=== PATIENT | female | born 1940 | race Caucasian/White ===

== ENCOUNTER 2017-03-19 15:55 | Emergency (ER) | payer OTHER ==
[~2017-03-19] VITALS: Ht 149.9 cm; Wt 54.1 kg
[~2017-03-19 15:55] MED LIST: CHOLESTEROL PO; IRON18 MG PO; VITAMIN E100 UNIT PO
[2017-03-19] MEDS ORDERED: SIMVASTATIN40 MG PO (16:09)
[2017-03-19] MEDS ORDERED: ERY-TAB500 MG PO (16:10)
[2017-03-19] MEDS ORDERED: NEOMYCIN SULFA500 MG PO (16:10)
[2017-03-19 16:29] LABS: HEMATOCRIT 40.2 % (36.0-46.0); MCH 24.4 PG (29.0-34.0); MCHC 29.9 G/DL (30.0-36.0); MCV 81.7 FL (83-99); MEAN PLAT.VOLUME 9.4 uM^3 (9.5-12.4); RED BLOOD COUNT 4.92 M/uL (3.80-5.20); WHITE BLOOD COUNT 10.6 K/uL (4.1-10.2)
[2017-03-19 16:31] LABS: PLATELET COUNT 236 K/uL (156-360)
[2017-03-19 16:38] LABS: CHLORIDE 103 mEq/L (99-109); POTASSIUM 4.2 mEq/L (3.7-5.4); SODIUM 138 mEq/L (136-147)
[2017-03-19 16:40] LABS: GLUCOSE 147 mg/dL (70-99)
[2017-03-19 16:41] LABS: ANION GAP 15 MEQ/L (2-14)
[2017-03-19 16:42] LABS: TOTAL BILIRUBIN 0.9 mg/dL (0.0-1.0)
[2017-03-19 16:43] LABS: ALKALINE PHOSPHATASE 86 IU/L (3-129)
[2017-03-19 16:44] LABS: GFR ESTIMATE (CALCULATED) > 59 mL/min/
[2017-03-19 16:45] LABS: UREA NITROGEN (BUN) 7 mg/dL (9-23)
[2017-03-19 16:47] LABS: LIPASE 9 U/L (1.0-51.0)
[2017-03-19 20:21] LABS: ADD MIUA? YES; BILIRUBIN NEGATIVE; BLOOD NEGATIVE; COLOR AMBER ((YELLOW)); GLUCOSE (STRIP) 50; KETONES 20; LEUKOCYTES NEGATIVE; NITRITE POSITIVE; PROTEIN (STRIP) 30; UROBILINOGEN 0.2 MG/DL (0.2-1.0)
[2017-03-19 20:26] LABS: BACTERIA NONE SEEN /HPF; EPITHELIAL CELLS RARE /HPF; MUCUS TRACE /LPF; RED BLOOD CELLS 0-5 /HPF (0-5); WHITE BLOOD CELLS 0-5 /HPF (0-5)
[2017-03-19] MEDS ORDERED: NORCO 5/3251 TABLET PO (20:28)
[2017-03-19] MEDS ORDERED: ZOFRAN ODT8 MG PO (20:28)
[2017-03-19] MEDS ORDERED: CIPRO500 MG PO (20:28)
[2017-03-19 21:18] VITALS: BP 168/96
== END 2017-03-19 21:19 | disposition home or self-care (01) ==
LOC: EME 15:55
PROVIDERS: Nurse Practitioner Family; Physician Assistant
DX: N13.2 Hydronephrosis with renal and ureteral calculous obstruction (principal); R11.2 Nausea with vomiting, unspecified; N12 Tubulo-interstitial nephritis, not specified as acute or chronic; Z87.442 Personal history of urinary calculi
CPT/HCPCS: 74177; 80048; 80053; 81003; 83605; 83690; 85027; 99281; 99285; J0696; J2270; J2405; J3010; J7030; J7050

== ENCOUNTER 2017-03-29 21:20 | Inpatient (IN) | payer OTHER ==
[~2017-03-29] VITALS: Ht 149.9 cm; Wt 52.2 kg
[~2017-03-29 21:20] MED LIST changes: +CIPRO500 MG PO; +ERY-TAB500 MG PO; +NEOMYCIN SULFA500 MG PO; +NORCO 5/3251 TABLET PO; +SIMVASTATIN40 MG PO; +ZOFRAN ODT8 MG PO
[2017-03-30] MEDS ORDERED: VITAMIN E400 UNIT PO (08:22)
[2017-03-30 08:43] VITALS: BP 165/76
[2017-03-30 22:26] VITALS: BP 135/84
[2017-03-31] VITALS (7 sets, daily range): BP systolic 130–182; BP diastolic 62–82
[2017-03-31 06:23] LABS: HEMATOCRIT 37.1 % (36.0-46.0); MCH 25.6 PG (29.0-34.0); MCHC 30.7 G/DL (30.0-36.0); MCV 83.2 FL (83-99); MEAN PLAT.VOLUME 9.5 uM^3 (9.5-12.4); PLATELET COUNT 316 K/uL (156-360); RBC DIS.WIDTH-CV 26.5 % (11.8-14.6); RED BLOOD COUNT 4.46 M/uL (3.80-5.20); WHITE BLOOD COUNT 13.3 K/uL (4.1-10.2)
[2017-03-31 06:47] LABS: ANION GAP 9 MEQ/L (2-14); CHLORIDE 105 MEQ/L (99-109); GFR ESTIMATE (CALCULATED) > 59 mL/min/; SAMPLE HEMOLYSIS CHECK 0; SAMPLE ICTERIC CHECK 0; SAMPLE LIPEMIA CHECK 0; SODIUM 139 MEQ/L (136-147); UREA NITROGEN (BUN) 4 mg/dL (9-23)
[2017-03-31 06:54] LABS: GLUCOSE 201 mg/dL (70-99); POTASSIUM 4.1 MEQ/L (3.7-5.4)
[2017-04-01] VITALS (8 sets, daily range): BP systolic 142–188; BP diastolic 71–90
[2017-04-01 05:50] LABS: HEMATOCRIT 35.3 % (36.0-46.0); MCH 26.4 PG (29.0-34.0); MCHC 31.4 G/DL (30.0-36.0); MEAN PLAT.VOLUME 9.5 uM^3 (9.5-12.4); PLATELET COUNT 315 K/uL (156-360); RBC DIS.WIDTH-CV 27.3 % (11.8-14.6); RBC DIS.WIDTH-SD 78.1 % (39-53); WHITE BLOOD COUNT 21.5 K/uL (4.1-10.2)
[2017-04-01 05:52] LABS: EOSINOPHIL (%) 0 % (0-5); IMMATURE GRANULOCYTE (%) 0.5 % (0.0-0.7); IMMATURE GRANULOCYTE COUNT 0.1 K/uL; INSTRUMENT ABS NEUTROPHIL CT 18.6 K/uL; MONOCYTE (%) 8.5 % (3-12); MONOCYTE COUNT 1.8 K/uL (0-0.8); NEUTROPHIL (%) 86.4 % (45-76); NEUTROPHIL COUNT 18.6 K/uL (1.8-6.4)
[2017-04-01 06:14] LABS: ANION GAP 9 MEQ/L (2-14); CHLORIDE 103 MEQ/L (99-109); GFR ESTIMATE (CALCULATED) > 59 mL/min/; GLUCOSE 121 mg/dL (70-99); POTASSIUM 4.1 MEQ/L (3.7-5.4); SAMPLE HEMOLYSIS CHECK 0; SAMPLE ICTERIC CHECK 0; SAMPLE LIPEMIA CHECK 0; SODIUM 141 MEQ/L (136-147); UREA NITROGEN (BUN) 5 mg/dL (9-23)
[2017-04-02 02:31] VITALS: BP 185/89
[2017-04-02 07:27] VITALS: BP 148/72
[2017-04-02 09:32] LABS: EOSINOPHIL (%) 0.1 % (0-5); HEMATOCRIT 36.7 % (36.0-46.0); IMMATURE GRANULOCYTE (%) 0.4 % (0.0-0.7); IMMATURE GRANULOCYTE COUNT 0.1 K/uL; LYMPHOCYTE COUNT 1.2 K/uL (1.0-2.8); MCH 25.5 PG (29.0-34.0); MCHC 30.5 G/DL (30.0-36.0); MCV 83.4 FL (83-99); MEAN PLAT.VOLUME 9.9 uM^3 (9.5-12.4); MONOCYTE (%) 12.6 % (3-12); MONOCYTE COUNT 1.8 K/uL (0-0.8); NEUTROPHIL (%) 78.4 % (45-76); PLATELET COUNT 348 K/uL (156-360); RBC DIS.WIDTH-CV 26.8 % (11.8-14.6); WHITE BLOOD COUNT 14.1 K/uL (4.1-10.2)
[2017-04-02 09:52] LABS: ANION GAP 9 MEQ/L (2-14); CHLORIDE 103 MEQ/L (99-109); GFR ESTIMATE (CALCULATED) > 59 mL/min/; GLUCOSE 113 mg/dL (70-99); POTASSIUM 4.2 MEQ/L (3.7-5.4); SAMPLE HEMOLYSIS CHECK 0; SAMPLE ICTERIC CHECK 0; SAMPLE LIPEMIA CHECK 0; SODIUM 139 MEQ/L (136-147); UREA NITROGEN (BUN) 5 mg/dL (9-23)
[2017-04-02 11:42] VITALS: BP 130/62
[2017-04-02 15:42] VITALS: BP 145/78
[2017-04-02 18:56] VITALS: BP 166/85
[2017-04-02 23:10] VITALS: BP 123/73
[2017-04-03 02:54] VITALS: BP 120/74
[2017-04-03 07:33] VITALS: BP 130/72
[2017-04-03 13:08] VITALS: BP 132/75
[2017-04-03 16:34] VITALS: BP 134/74
[2017-04-03 20:12] VITALS: BP 133/83
[2017-04-03 23:17] VITALS: BP 123/72
[2017-04-04 05:44] LABS: MCH 25.3 PG (29.0-34.0); MCHC 30.3 G/DL (30.0-36.0); MCV 83.7 FL (83-99); MEAN PLAT.VOLUME 9.4 uM^3 (9.5-12.4); PLATELET COUNT 412 K/uL (156-360); RBC DIS.WIDTH-CV 26.1 % (11.8-14.6); RBC DIS.WIDTH-SD 74.8 % (39-53); RED BLOOD COUNT 4.54 M/uL (3.80-5.20)
[2017-04-04 06:19] LABS: ALKALINE PHOSPHATASE 66 IU/L (3-129); ANION GAP 9 MEQ/L (2-14); CHLORIDE 102 MEQ/L (99-109); GFR ESTIMATE (CALCULATED) > 59 mL/min/; GLUCOSE 98 mg/dL (70-99); POTASSIUM 4.6 MEQ/L (3.7-5.4); SAMPLE HEMOLYSIS CHECK 0; SAMPLE ICTERIC CHECK 0; SAMPLE LIPEMIA CHECK 0; SODIUM 139 MEQ/L (136-147); TOTAL BILIRUBIN 0.9 MG/DL (0.0-1.0); UREA NITROGEN (BUN) 11 mg/dL (9-23)
[2017-04-04 08:32] VITALS: BP 142/74
[2017-04-04 11:37] VITALS: BP 110/61
[2017-04-04 15:34] VITALS: BP 138/74
[2017-04-04 20:03] VITALS: BP 134/72
[2017-04-05 00:26] VITALS: BP 161/75
[2017-04-05 07:28] VITALS: BP 136/76
[2017-04-05] MEDS ORDERED: TRAMADOL HCL50 MG PO (09:47)
[2017-04-05 11:10] VITALS: BP 118/59
== END 2017-04-05 12:17 | disposition home or self-care (01) | DRG 331 ==
LOC: ENRESERV 21:20 → 5EAST 03-30 07:54 → 2SOUTH 03-30 07:54 → SDC 03-30 08:55 → EDSTATUS 03-30 08:55 → 2SOUTH 03-30 08:56 → ENRESERV 03-30 16:24 → 5EAST 03-30 19:12
PROVIDERS: Physician Assistant; Surgery
DX: C18.7 Malignant neoplasm of sigmoid colon (principal); I10 Essential (primary) hypertension; D72.829 Elevated white blood cell count, unspecified; M81.0 Age-related osteoporosis without current pathological fracture; D50.9 Iron deficiency anemia, unspecified; E78.5 Hyperlipidemia, unspecified; E87.6 Hypokalemia; K80.20 Calculus of gallbladder without cholecystitis without obstruction; B37.3 Candidiasis of vulva and vagina; J30.9 Allergic rhinitis, unspecified
CPT/HCPCS: 36415; 74020; 80048; 80053; 84132; 85025; 85027; 86850; 86900; 86901; 88304; 88309; 94799; 99202; J0131; J1100; J1170; J1200; J1650; J2405; J2710; J2765; J3010

== ENCOUNTER 2017-05-04 18:34 | Inpatient (IN) | payer OTHER ==
[~2017-05-04] VITALS: Ht 177.8 cm; Wt 93.1 kg
[~2017-05-04 18:34] MED LIST changes: -IRON18 MG PO; +IRON325 M1 PO; +TRAMADOL HCL50 MG PO; +VITAMIN E400 UNIT PO
[2017-05-04] MEDS ORDERED: ZOFRAN8 MG PO (19:51)
[2017-05-04 20:14] LABS: C DIFF TOXIN POSITIVE (NEGATIVE)
[2017-05-04 20:15] LABS: PROBE CHECK PASS; SPECIMEN PROCESSING CONTROL PASS
[2017-05-04 22:17] VITALS: BP 108/58
[2017-05-05 04:01] VITALS: BP 94/54
[2017-05-05 05:20] LABS: HEMATOCRIT 30.2 % (36.0-46.0); MCH 28.4 PG (29.0-34.0); MCHC 33.8 G/DL (30.0-36.0); MCV 84.1 FL (83-99); MEAN PLAT.VOLUME 10.2 uM^3 (9.5-12.4); PLATELET COUNT 294 K/uL (156-360); RBC DIS.WIDTH-CV 19.2 % (11.8-14.6); RBC DIS.WIDTH-SD 58.7 % (39-53); WHITE BLOOD COUNT 24.5 K/uL (4.1-10.2)
[2017-05-05 05:23] LABS: RED BLOOD COUNT 3.59 M/uL (3.80-5.20)
[2017-05-05 05:42] LABS: ANION GAP 11 MEQ/L (2-14); CHLORIDE 103 MEQ/L (99-109); GLUCOSE 67 mg/dL (70-99); POTASSIUM 4.1 MEQ/L (3.7-5.4); SAMPLE HEMOLYSIS CHECK 0; SAMPLE ICTERIC CHECK 0; SAMPLE LIPEMIA CHECK 0; SODIUM 133 MEQ/L (136-147); UREA NITROGEN (BUN) 53 mg/dL (9-23)
[2017-05-05 05:44] LABS: GFR ESTIMATE (CALCULATED) 47 mL/min/
[2017-05-05 06:18] LABS: POINT-OF-CARE METER ID UU13113698
[2017-05-05 08:52] VITALS: BP 90/52
[2017-05-05 10:46] LABS: ABS NEUTROPHIL COUNT 21.4; ANISOCYTOSIS 1+; EOSINOPHIL ABS CT 0; HYPOCHROMASIA 1+; INSTRUMENT ABS NEUTROPHIL CT 20.8 K/uL; LYMPHOCYTES 1.5 % (15.0-45.0); MICROCYTOSIS 1+; NUCLEATED RBC'S 0.5; PLAT.SUFFICIENCY ADEQUATE; POIKILOCYTOSIS 1+; SEG.NEUTROPHILS 66.5 % (46.0-76.0); SPHEROCYTES 1+
[2017-05-05 12:47] VITALS: BP 105/72
[2017-05-05 17:10] VITALS: BP 98/63
[2017-05-05 19:44] VITALS: BP 105/59
[2017-05-06 01:08] VITALS: BP 95/61
[2017-05-06 05:35] VITALS: BP 88/55
[2017-05-06 05:47] LABS: HEMATOCRIT 28.9 % (36.0-46.0); MCH 27.8 PG (29.0-34.0); MCHC 33.9 G/DL (30.0-36.0); MCV 82.1 FL (83-99); PLATELET COUNT 284 K/uL (156-360); RBC DIS.WIDTH-CV 19.1 % (11.8-14.6); RBC DIS.WIDTH-SD 57.2 % (39-53); RED BLOOD COUNT 3.52 M/uL (3.80-5.20); WHITE BLOOD COUNT 22.3 K/uL (4.1-10.2)
[2017-05-06 06:00] LABS: ANION GAP 10 MEQ/L (2-14); CHLORIDE 106 MEQ/L (99-109); GFR ESTIMATE (CALCULATED) > 59 mL/min/; POTASSIUM 3.6 MEQ/L (3.7-5.4); SAMPLE HEMOLYSIS CHECK 0; SAMPLE ICTERIC CHECK 0; SAMPLE LIPEMIA CHECK 0; SODIUM 132 MEQ/L (136-147); UREA NITROGEN (BUN) 32 mg/dL (9-23)
[2017-05-06 06:03] LABS: GLUCOSE 101 mg/dL (70-99)
[2017-05-06 07:15] LABS: ABS NEUTROPHIL COUNT 20.4; ANISOCYTOSIS 2+; BAND NEUTROPHILS 16.1 % (0-8.0); BASOPHILS 0.5 %; EOSINOPHIL ABS CT 0; HYPOCHROMASIA 2+; INSTRUMENT ABS NEUTROPHIL CT 18.9 K/uL; LYMPHOCYTES 1.3 % (15.0-45.0); MACROCYTES 1+; METAMYELOCYTES 0.4 %; MICROCYTOSIS 1+; PLAT.SUFFICIENCY ADEQUATE; POIKILOCYTOSIS 2+; SEG.NEUTROPHILS 75.2 % (46.0-76.0)
[2017-05-06 07:26] VITALS: BP 103/67
[2017-05-06 11:42] VITALS: BP 101/66
[2017-05-06 16:26] VITALS: BP 96/62
[2017-05-06 16:37] LABS: ANION GAP 8 MEQ/L (2-14); CHLORIDE 106 MEQ/L (99-109); GFR ESTIMATE (CALCULATED) 58 mL/min/; GLUCOSE 146 mg/dL (70-99); SAMPLE HEMOLYSIS CHECK 0; SAMPLE ICTERIC CHECK 0; SAMPLE LIPEMIA CHECK 0; SODIUM 130 MEQ/L (136-147); UREA NITROGEN (BUN) 25 mg/dL (9-23)
[2017-05-06 19:21] VITALS: BP 129/69
[2017-05-07 00:14] VITALS: BP 109/75
[2017-05-07 05:11] VITALS: BP 120/75
[2017-05-07 05:36] LABS: MCHC 33.6 G/DL (30.0-36.0); MCV 83.3 FL (83-99); MEAN PLAT.VOLUME 9.7 uM^3 (9.5-12.4); PLATELET COUNT 248 K/uL (156-360); RBC DIS.WIDTH-CV 19.1 % (11.8-14.6); RBC DIS.WIDTH-SD 56.7 % (39-53); RED BLOOD COUNT 3.36 M/uL (3.80-5.20); WHITE BLOOD COUNT 15.6 K/uL (4.1-10.2)
[2017-05-07 06:02] LABS: ANION GAP 7 MEQ/L (2-14); CHLORIDE 106 MEQ/L (99-109); GFR ESTIMATE (CALCULATED) > 59 mL/min/; GLUCOSE 86 mg/dL (70-99); POTASSIUM 4.3 MEQ/L (3.7-5.4); SAMPLE HEMOLYSIS CHECK 0; SAMPLE ICTERIC CHECK 0; SAMPLE LIPEMIA CHECK 0; SODIUM 132 MEQ/L (136-147); UREA NITROGEN (BUN) 18 mg/dL (9-23)
[2017-05-07 06:19] LABS: EOSINOPHIL (%) 0.3 % (0-5); EOSINOPHIL COUNT 0.1 K/uL (0-0.3); IMMATURE GRANULOCYTE (%) 2.8 % (0.0-0.7); IMMATURE GRANULOCYTE COUNT 0.4 K/uL; INSTRUMENT ABS NEUTROPHIL CT 11.7 K/uL; LYMPHOCYTE COUNT 1.3 K/uL (1.0-2.8); MONOCYTE (%) 13.2 % (3-12); MONOCYTE COUNT 2.1 K/uL (0-0.8); NEUTROPHIL (%) 74.9 % (45-76); NEUTROPHIL COUNT 11.7 K/uL (1.8-6.4); PLAT.SUFFICIENCY ADEQUATE
[2017-05-07 07:39] VITALS: BP 109/67
[2017-05-07 11:42] VITALS: BP 115/69
[2017-05-07 15:00] VITALS: BP 114/58
[2017-05-07 15:12] LABS: ADD MIUA? YES; BILIRUBIN NEGATIVE; BLOOD SMALL; COLOR AMBER ((YELLOW)); GLUCOSE (STRIP) NEGATIVE; KETONES NEGATIVE; LEUKOCYTES MODERATE; NITRITE NEGATIVE; PROTEIN (STRIP) NEGATIVE; SPECIFIC GRAVITY 1.017 (1.000-1.030); UROBILINOGEN 0.2 MG/DL (0.2-1.0)
[2017-05-07 15:38] LABS: BACTERIA 2+ /HPF; EPITHELIAL CELLS 1+ /HPF; HYALINE CASTS 0-5 /LPF; MUCUS RARE /LPF
[2017-05-07 19:55] VITALS: BP 108/52
[2017-05-08 05:16] VITALS: BP 116/69
[2017-05-08 06:02] LABS: HEMATOCRIT 27.3 % (36.0-46.0); MCH 28.1 PG (29.0-34.0); MCHC 34.4 G/DL (30.0-36.0); MCV 81.5 FL (83-99); MEAN PLAT.VOLUME 10.1 uM^3 (9.5-12.4); PLATELET COUNT 237 K/uL (156-360); RBC DIS.WIDTH-CV 18.3 % (11.8-14.6); RBC DIS.WIDTH-SD 53.3 % (39-53); RED BLOOD COUNT 3.35 M/uL (3.80-5.20)
[2017-05-08 06:36] LABS: ANION GAP 8 MEQ/L (2-14); CHLORIDE 107 MEQ/L (99-109); GFR ESTIMATE (CALCULATED) > 59 mL/min/; GLUCOSE 79 mg/dL (70-99); POTASSIUM 4.1 MEQ/L (3.7-5.4); SAMPLE HEMOLYSIS CHECK 0; SAMPLE ICTERIC CHECK 0; SAMPLE LIPEMIA CHECK 0; SODIUM 134 MEQ/L (136-147); UREA NITROGEN (BUN) 13 mg/dL (9-23)
[2017-05-08 06:42] LABS: ABS NEUTROPHIL COUNT 7.4; BAND NEUTROPHILS 3.5 % (0-8.0); EOSINOPHIL ABS CT 0; INSTRUMENT ABS NEUTROPHIL CT 6.2 K/uL; LYMPHOCYTES 6.1 % (15.0-45.0); MYELOCYTES 0.9 %; SEG.NEUTROPHILS 78.2 % (46.0-76.0); SMUDGE CELLS 13.9
[2017-05-08 07:24] VITALS: BP 104/65
[2017-05-08 12:01] VITALS: BP 99/67
[2017-05-08 14:12] VITALS: BP 102/63
[2017-05-08 17:17] VITALS: BP 111/63
[2017-05-08 20:28] VITALS: BP 106/58
[2017-05-09 00:58] VITALS: BP 108/59
[2017-05-09 04:12] VITALS: BP 127/66
[2017-05-09 07:17] LABS: HEMATOCRIT 27.4 % (36.0-46.0); MCH 27.8 PG (29.0-34.0); MCHC 33.6 G/DL (30.0-36.0); MCV 82.8 FL (83-99); MEAN PLAT.VOLUME 9.7 uM^3 (9.5-12.4); PLATELET COUNT 235 K/uL (156-360); RBC DIS.WIDTH-CV 17.8 % (11.8-14.6); RBC DIS.WIDTH-SD 52.6 % (39-53); RED BLOOD COUNT 3.31 M/uL (3.80-5.20)
[2017-05-09 07:34] LABS: ADD MIUA? YES; BILIRUBIN NEGATIVE; BLOOD NEGATIVE; COLOR AMBER ((YELLOW)); GLUCOSE (STRIP) NEGATIVE; KETONES NEGATIVE; LEUKOCYTES SMALL; NITRITE NEGATIVE; PROTEIN (STRIP) NEGATIVE; SPECIFIC GRAVITY 1.015 (1.000-1.030); UROBILINOGEN 0.2 MG/DL (0.2-1.0)
[2017-05-09 07:48] LABS: ABS NEUTROPHIL COUNT 7.1; ANISOCYTOSIS 1+; ATYPICAL LYMPHOCYTE 0.9 %; EOSINOPHIL ABS CT 0; HYPOCHROMASIA 2+; INSTRUMENT ABS NEUTROPHIL CT 5.1 K/uL; LYMPHOCYTES 6.2 % (15.0-45.0); MACROCYTES 1+; METAMYELOCYTES 2.7 %; PLAT.SUFFICIENCY ADEQUATE; SEG.NEUTROPHILS 73.4 % (46.0-76.0); TARGET CELLS 1+
[2017-05-09 07:54] VITALS: BP 112/70
[2017-05-09 07:55] LABS: ANION GAP 6 MEQ/L (2-14); CHLORIDE 104 MEQ/L (99-109); GFR ESTIMATE (CALCULATED) > 59 mL/min/; GLUCOSE 92 mg/dL (70-99); POTASSIUM 4.5 MEQ/L (3.7-5.4); SAMPLE HEMOLYSIS CHECK 1; SAMPLE ICTERIC CHECK 0; SAMPLE LIPEMIA CHECK 0; SODIUM 133 MEQ/L (136-147); UREA NITROGEN (BUN) 11 mg/dL (9-23)
[2017-05-09 07:58] LABS: ALKALINE PHOSPHATASE 58 IU/L (3-129); TOTAL BILIRUBIN 0.6 MG/DL (0.0-1.0)
[2017-05-09 08:09] LABS: BACTERIA RARE /HPF; EPITHELIAL CELLS RARE /HPF; MUCUS TRACE /LPF; RED BLOOD CELLS 0-5 /HPF (0-5); WHITE BLOOD CELLS 0-5 /HPF (0-5)
[2017-05-09 15:58] VITALS: BP 110/58
[2017-05-09 23:43] VITALS: BP 100/58
[2017-05-10 07:13] LABS: HEMATOCRIT 28.1 % (36.0-46.0); MCH 27.4 PG (29.0-34.0); MCHC 33.1 G/DL (30.0-36.0); MCV 82.9 FL (83-99); MEAN PLAT.VOLUME 9.7 uM^3 (9.5-12.4); PLATELET COUNT 256 K/uL (156-360); RBC DIS.WIDTH-CV 17.6 % (11.8-14.6); RBC DIS.WIDTH-SD 52.4 % (39-53); RED BLOOD COUNT 3.39 M/uL (3.80-5.20); WHITE BLOOD COUNT 8.1 K/uL (4.1-10.2)
[2017-05-10 07:54] LABS: ALKALINE PHOSPHATASE 47 IU/L (3-129); ANION GAP 4 MEQ/L (2-14); CHLORIDE 105 MEQ/L (99-109); GFR ESTIMATE (CALCULATED) > 59 mL/min/; GLUCOSE 89 mg/dL (70-99); POTASSIUM 3.9 MEQ/L (3.7-5.4); SAMPLE HEMOLYSIS CHECK 0; SAMPLE ICTERIC CHECK 0; SAMPLE LIPEMIA CHECK 0; SODIUM 134 MEQ/L (136-147); TOTAL BILIRUBIN 0.5 MG/DL (0.0-1.0); UREA NITROGEN (BUN) 8 mg/dL (9-23)
[2017-05-10 08:02] LABS: EOSINOPHIL (%) 1.2 % (0-5); EOSINOPHIL COUNT 0.1 K/uL (0-0.3); IMMATURE GRANULOCYTE (%) 1.1 % (0.0-0.7); IMMATURE GRANULOCYTE COUNT 0.1 K/uL; INSTRUMENT ABS NEUTROPHIL CT 5.5 K/uL; LYMPHOCYTE COUNT 1.1 K/uL (1.0-2.8); MONOCYTE (%) 17.2 % (3-12); MONOCYTE COUNT 1.4 K/uL (0-0.8); NEUTROPHIL (%) 67.2 % (45-76); NEUTROPHIL COUNT 5.5 K/uL (1.8-6.4); PLAT.SUFFICIENCY ADEQUATE
[2017-05-10 08:05] VITALS: BP 118/68
[2017-05-10 15:44] VITALS: BP 112/70
[2017-05-10 23:23] VITALS: BP 119/65
[2017-05-11 07:42] VITALS: BP 128/70
[2017-05-11 08:04] LABS: EOSINOPHIL (%) 0.2 % (0-5); HEMATOCRIT 31.4 % (36.0-46.0); IMMATURE GRANULOCYTE (%) 0.9 % (0.0-0.7); IMMATURE GRANULOCYTE COUNT 0.1 K/uL; INSTRUMENT ABS NEUTROPHIL CT 9.8 K/uL; LYMPHOCYTE COUNT 0.9 K/uL (1.0-2.8); MCH 28.5 PG (29.0-34.0); MCHC 34.4 G/DL (30.0-36.0); MCV 82.8 FL (83-99); MEAN PLAT.VOLUME 9.9 uM^3 (9.5-12.4); MONOCYTE (%) 12.6 % (3-12); MONOCYTE COUNT 1.6 K/uL (0-0.8); NEUTROPHIL (%) 78.4 % (45-76); NEUTROPHIL COUNT 9.8 K/uL (1.8-6.4); RBC DIS.WIDTH-CV 17.6 % (11.8-14.6); RBC DIS.WIDTH-SD 51.9 % (39-53); RED BLOOD COUNT 3.79 M/uL (3.80-5.20); WHITE BLOOD COUNT 12.4 K/uL (4.1-10.2)
[2017-05-11 08:05] LABS: PLATELET COUNT 362 K/uL (156-360)
[2017-05-11 08:42] LABS: ALKALINE PHOSPHATASE 62 IU/L (3-129); ANION GAP 10 MEQ/L (2-14); CHLORIDE 101 MEQ/L (99-109); GFR ESTIMATE (CALCULATED) > 59 mL/min/; GLUCOSE 81 mg/dL (70-99); POTASSIUM 4.6 MEQ/L (3.7-5.4); SAMPLE HEMOLYSIS CHECK 0; SAMPLE ICTERIC CHECK 0; SAMPLE LIPEMIA CHECK 0; SODIUM 134 MEQ/L (136-147); TOTAL BILIRUBIN 0.6 MG/DL (0.0-1.0); UREA NITROGEN (BUN) 7 mg/dL (9-23)
[2017-05-11 15:09] VITALS: BP 98/58
[2017-05-12 00:39] VITALS: BP 117/60
[2017-05-12 07:11] LABS: ALKALINE PHOSPHATASE 50 IU/L (3-129); ANION GAP 5 MEQ/L (2-14); CHLORIDE 104 MEQ/L (99-109); GFR ESTIMATE (CALCULATED) > 59 mL/min/; GLUCOSE 79 mg/dL (70-99); POTASSIUM 4.4 MEQ/L (3.7-5.4); SAMPLE HEMOLYSIS CHECK 0; SAMPLE ICTERIC CHECK 0; SAMPLE LIPEMIA CHECK 0; SODIUM 133 MEQ/L (136-147); UREA NITROGEN (BUN) 9 mg/dL (9-23)
[2017-05-12 07:12] LABS: TOTAL BILIRUBIN 0.4 MG/DL (0.0-1.0)
[2017-05-12 07:26] LABS: EOSINOPHIL (%) 0.9 % (0-5); EOSINOPHIL COUNT 0.1 K/uL (0-0.3); HEMATOCRIT 25.1 % (36.0-46.0); HEMATOLOGY COMMENT 1 UNABLE TO REPORT; IMMATURE GRANULOCYTE (%) 0.6 % (0.0-0.7); IMMATURE GRANULOCYTE COUNT 0.1 K/uL; INSTRUMENT ABS NEUTROPHIL CT 6.2 K/uL; LYMPHOCYTE COUNT 1.1 K/uL (1.0-2.8); MCH 28.7 PG (29.0-34.0); MCHC 34.3 G/DL (30.0-36.0); MCV 83.7 FL (83-99); MONOCYTE (%) 17.7 % (3-12); MONOCYTE COUNT 1.6 K/uL (0-0.8); NEUTROPHIL (%) 68.6 % (45-76); NEUTROPHIL COUNT 6.2 K/uL (1.8-6.4); PLATELET COUNT UNABLE TO REPORT K/uL (156-360); RBC DIS.WIDTH-CV 17.4 % (11.8-14.6); RBC DIS.WIDTH-SD 51.8 % (39-53)
[2017-05-12 07:33] VITALS: BP 112/62
[2017-05-12 16:58] VITALS: BP 110/58
[2017-05-13 02:38] VITALS: BP 122/58
[2017-05-13 06:36] LABS: HEMATOCRIT 27.9 % (36.0-46.0); MCH 27.6 PG (29.0-34.0); MCHC 33.3 G/DL (30.0-36.0); MCV 82.8 FL (83-99); MEAN PLAT.VOLUME 9.3 uM^3 (9.5-12.4); RBC DIS.WIDTH-CV 17.3 % (11.8-14.6); RBC DIS.WIDTH-SD 51.9 % (39-53); RED BLOOD COUNT 3.37 M/uL (3.80-5.20); WHITE BLOOD COUNT 8.1 K/uL (4.1-10.2)
[2017-05-13 07:05] LABS: ABS NEUTROPHIL COUNT 6.1; ANISOCYTOSIS 2+; ATYPICAL LYMPHOCYTE 3.6 %; BAND NEUTROPHILS 19.6 % (0-8.0); BASOPHILS 2.7 %; EOSINOPHIL ABS CT 0; HYPOCHROMASIA 2+; INSTRUMENT ABS NEUTROPHIL CT 4.5 K/uL; LYMPHOCYTES 3.6 % (15.0-45.0); MACROCYTES 1+; MICROCYTOSIS 1+; NUCLEATED RBC'S 0.9; PLAT.SUFFICIENCY ADEQUATE; SEG.NEUTROPHILS 56.2 % (46.0-76.0)
[2017-05-13 07:28] LABS: PLATELET COUNT 626 K/uL (156-360)
[2017-05-13 07:43] LABS: ALKALINE PHOSPHATASE 57 IU/L (3-129); ANION GAP 8 MEQ/L (2-14); CHLORIDE 105 MEQ/L (99-109); GFR ESTIMATE (CALCULATED) > 59 mL/min/; GLUCOSE 75 mg/dL (70-99); POTASSIUM 3.6 MEQ/L (3.7-5.4); SAMPLE HEMOLYSIS CHECK 0; SAMPLE ICTERIC CHECK 0; SAMPLE LIPEMIA CHECK 0; SODIUM 137 MEQ/L (136-147); TOTAL BILIRUBIN 0.4 MG/DL (0.0-1.0); UREA NITROGEN (BUN) 8 mg/dL (9-23)
[2017-05-13 08:00] VITALS: BP 124/76
[2017-05-13 16:50] VITALS: BP 102/60
[2017-05-14 00:01] VITALS: BP 135/68
[2017-05-14 06:17] LABS: HEMATOCRIT 27.2 % (36.0-46.0); MCH 27.7 PG (29.0-34.0); MCHC 33.5 G/DL (30.0-36.0); MCV 82.9 FL (83-99); MEAN PLAT.VOLUME 9.1 uM^3 (9.5-12.4); PLATELET COUNT 727 K/uL (156-360); RBC DIS.WIDTH-CV 17.5 % (11.8-14.6); RBC DIS.WIDTH-SD 52.3 % (39-53); RED BLOOD COUNT 3.28 M/uL (3.80-5.20); WHITE BLOOD COUNT 10.6 K/uL (4.1-10.2)
[2017-05-14 06:44] LABS: ALKALINE PHOSPHATASE 58 IU/L (3-129); ANION GAP 5 MEQ/L (2-14); CHLORIDE 101 MEQ/L (99-109); GFR ESTIMATE (CALCULATED) > 59 mL/min/; GLUCOSE 81 mg/dL (70-99); POTASSIUM 3.8 MEQ/L (3.7-5.4); SAMPLE HEMOLYSIS CHECK 0; SAMPLE ICTERIC CHECK 0; SAMPLE LIPEMIA CHECK 0; SODIUM 135 MEQ/L (136-147); UREA NITROGEN (BUN) 8 mg/dL (9-23)
[2017-05-14 06:45] LABS: TOTAL BILIRUBIN 0.3 MG/DL (0.0-1.0)
[2017-05-14 06:51] LABS: BASOPHIL COUNT 0.1 K/uL (0-0.1); EOSINOPHIL (%) 0.9 % (0-5); EOSINOPHIL COUNT 0.1 K/uL (0-0.3); HEMATOLOGY COMMENT 1 SMEAR COMPATIBLE; IMMATURE GRANULOCYTE COUNT 0.1 K/uL; INSTRUMENT ABS NEUTROPHIL CT 6.5 K/uL; LYMPHOCYTE COUNT 1.7 K/uL (1.0-2.8); MONOCYTE COUNT 2.1 K/uL (0-0.8); NEUTROPHIL (%) 61.6 % (45-76); NEUTROPHIL COUNT 6.5 K/uL (1.8-6.4); PLAT.SUFFICIENCY INCREASED
[2017-05-14 07:48] VITALS: BP 138/74
[2017-05-14 15:32] VITALS: BP 94/58
[2017-05-15 00:56] VITALS: BP 132/74
[2017-05-15 06:09] LABS: HEMATOCRIT 25.5 % (36.0-46.0); MCHC 34.9 G/DL (30.0-36.0); MCV 83.1 FL (83-99); MEAN PLAT.VOLUME 9.1 uM^3 (9.5-12.4); PLATELET COUNT 728 K/uL (156-360); RBC DIS.WIDTH-CV 17.9 % (11.8-14.6); RBC DIS.WIDTH-SD 53.1 % (39-53); RED BLOOD COUNT 3.07 M/uL (3.80-5.20); WHITE BLOOD COUNT 9.6 K/uL (4.1-10.2)
[2017-05-15 06:50] LABS: ALKALINE PHOSPHATASE 57 IU/L (3-129); ANION GAP 4 MEQ/L (2-14); CHLORIDE 102 MEQ/L (99-109); GFR ESTIMATE (CALCULATED) > 59 mL/min/; GLUCOSE 84 mg/dL (70-99); POTASSIUM 3.5 MEQ/L (3.7-5.4); SAMPLE HEMOLYSIS CHECK 0; SAMPLE ICTERIC CHECK 0; SAMPLE LIPEMIA CHECK 0; SODIUM 137 MEQ/L (136-147); TOTAL BILIRUBIN 0.3 MG/DL (0.0-1.0); UREA NITROGEN (BUN) 9 mg/dL (9-23)
[2017-05-15 07:32] LABS: ABS NEUTROPHIL COUNT 7.5; ANISOCYTOSIS 2+; BAND NEUTROPHILS 13.3 % (0-8.0); BASOPHILS 1.7 %; EOSINOPHIL ABS CT 0.1; EOSINOPHILS 0.9 % (0-5.0); HYPOCHROMASIA 1+; INSTRUMENT ABS NEUTROPHIL CT 5.8 K/uL; LYMPHOCYTES 12.4 % (15.0-45.0); MACROCYTES 2+; PLAT.SUFFICIENCY INCREASED; SEG.NEUTROPHILS 64.6 % (46.0-76.0)
[2017-05-15 07:36] VITALS: BP 122/68
[2017-05-15 20:00] VITALS: BP 122/68
[2017-05-16] VITALS: BP 115/67
[2017-05-16 05:58] LABS: BASOPHIL COUNT 0.1 K/uL (0-0.1); EOSINOPHIL (%) 0.9 % (0-5); EOSINOPHIL COUNT 0.1 K/uL (0-0.3); HEMATOCRIT 25.6 % (36.0-46.0); IMMATURE GRANULOCYTE (%) 2.4 % (0.0-0.7); IMMATURE GRANULOCYTE COUNT 0.2 K/uL; INSTRUMENT ABS NEUTROPHIL CT 4.6 K/uL; LYMPHOCYTE COUNT 1.6 K/uL (1.0-2.8); MCH 27.6 PG (29.0-34.0); MCHC 33.2 G/DL (30.0-36.0); MCV 83.1 FL (83-99); MEAN PLAT.VOLUME 8.9 uM^3 (9.5-12.4); MONOCYTE (%) 23.1 % (3-12); NEUTROPHIL (%) 53.7 % (45-76); NEUTROPHIL COUNT 4.6 K/uL (1.8-6.4); PLATELET COUNT 806 K/uL (156-360); RBC DIS.WIDTH-CV 17.9 % (11.8-14.6); RBC DIS.WIDTH-SD 53.1 % (39-53); RED BLOOD COUNT 3.08 M/uL (3.80-5.20); WHITE BLOOD COUNT 8.6 K/uL (4.1-10.2)
[2017-05-16 06:52] LABS: ALKALINE PHOSPHATASE 56 IU/L (3-129); ANION GAP 5 MEQ/L (2-14); CHLORIDE 102 MEQ/L (99-109); GFR ESTIMATE (CALCULATED) > 59 mL/min/; GLUCOSE 90 mg/dL (70-99); POTASSIUM 3.7 MEQ/L (3.7-5.4); SAMPLE HEMOLYSIS CHECK 0; SAMPLE ICTERIC CHECK 0; SAMPLE LIPEMIA CHECK 0; SODIUM 137 MEQ/L (136-147); TOTAL BILIRUBIN 0.3 MG/DL (0.0-1.0); UREA NITROGEN (BUN) 10 mg/dL (9-23)
[2017-05-16 07:55] VITALS: BP 138/86
[2017-05-16 09:26] VITALS: BP 110/63
[2017-05-16 17:21] VITALS: BP 120/64
[2017-05-17 00:09] VITALS: BP 121/80
[2017-05-17] MEDS ORDERED: THERAGRAN1 TABLET PO (00:42)
[2017-05-17] MEDS ORDERED: FLORASTOR250 MG PO (00:43)
[2017-05-17] MEDS ORDERED: FAMOTIDINE20 MG PO (00:43)
[2017-05-17] MEDS ORDERED: DESITIN DIAPER113 GM TP (00:46)
[2017-05-17 05:50] LABS: BASOPHIL COUNT 0.1 K/uL (0-0.1); EOSINOPHIL (%) 1.1 % (0-5); EOSINOPHIL COUNT 0.1 K/uL (0-0.3); HEMATOCRIT 25.8 % (36.0-46.0); IMMATURE GRANULOCYTE (%) 2.6 % (0.0-0.7); IMMATURE GRANULOCYTE COUNT 0.3 K/uL; INSTRUMENT ABS NEUTROPHIL CT 5.8 K/uL; LYMPHOCYTE COUNT 1.3 K/uL (1.0-2.8); MCH 28.7 PG (29.0-34.0); MCHC 34.1 G/DL (30.0-36.0); MEAN PLAT.VOLUME 8.7 uM^3 (9.5-12.4); MONOCYTE (%) 19.5 % (3-12); MONOCYTE COUNT 1.8 K/uL (0-0.8); NEUTROPHIL (%) 61.5 % (45-76); NEUTROPHIL COUNT 5.8 K/uL (1.8-6.4); PLATELET COUNT 771 K/uL (156-360); RBC DIS.WIDTH-SD 53.8 % (39-53); RED BLOOD COUNT 3.07 M/uL (3.80-5.20); WHITE BLOOD COUNT 9.4 K/uL (4.1-10.2)
[2017-05-17 06:14] LABS: ALKALINE PHOSPHATASE 54 IU/L (3-129); ANION GAP 6 MEQ/L (2-14); CHLORIDE 102 MEQ/L (99-109); GFR ESTIMATE (CALCULATED) > 59 mL/min/; GLUCOSE 89 mg/dL (70-99); POTASSIUM 3.3 MEQ/L (3.7-5.4); SAMPLE HEMOLYSIS CHECK 0; SAMPLE ICTERIC CHECK 0; SAMPLE LIPEMIA CHECK 0; SODIUM 138 MEQ/L (136-147); TOTAL BILIRUBIN 0.3 MG/DL (0.0-1.0); UREA NITROGEN (BUN) 9 mg/dL (9-23)
[2017-05-17 07:40] VITALS: BP 126/78
[2017-05-17] MEDS ORDERED: FUROSEMIDE40 MG PO (12:34)
[2017-05-17] MEDS ORDERED: KLOR-CON M1010 MEQ PO (12:34)
== END 2017-05-17 14:03 | disposition home or self-care (01) | DRG 372 ==
LOC: EME 18:34 → 4EAST 19:22 → EDOF 19:22 → ENRESERV 19:27 → 4EAST 21:30 → ENRESERV 05-08 11:45 → 2EAST 05-08 13:30 → ENRESERV 05-08 13:33 → 2EAST 05-17 14:03
PROVIDERS: Emergency Medicine; Internal Medicine
DX: A04.72 Enterocolitis due to Clostridium difficile, not specified as recurrent (principal); N17.9 Acute kidney failure, unspecified; E86.0 Dehydration; E87.1 Hypo-osmolality and hyponatremia; I95.9 Hypotension, unspecified; E87.2 Acidosis; R18.8 Other ascites; J90 Pleural effusion, not elsewhere classified; E88.09 Other disorders of plasma-protein metabolism, not elsewhere classified; E87.6 Hypokalemia; R33.9 Retention of urine, unspecified; R12 Heartburn; D47.3 Essential (hemorrhagic) thrombocythemia; Z85.038 Personal history of other malignant neoplasm of large intestine; Z90.49 Acquired absence of other specified parts of digestive tract; D50.9 Iron deficiency anemia, unspecified; I10 Essential (primary) hypertension; K80.20 Calculus of gallbladder without cholecystitis without obstruction; Z80.1 Family history of malignant neoplasm of trachea, bronchus and lung; Z82.3 Family history of stroke; Z82.49 Family history of ischemic heart disease and other diseases of the circulatory system
CPT/HCPCS: 71020; 74000; 74176; 80048; 80048 91; 80053; 80069; 81003; 82330; 82948; 83605; 83630; 83690; 85007; 85025; 87040; 87077; 87086; 87177; 87186; 87329; 87493; 87506; 96360; 96361; 97530 GP; 99281; 99285; J1644; J1940; J2405; J7030; J7040; J7120; S0030